=== PATIENT | male | born 1945 | race Caucasian/White ===

== ENCOUNTER 2020-12-25 11:18 | Emergency (ER) | payer MEDICARE ==
[~2020-12-25 11:18] MED LIST: AMOXICILLIN500 MG PO; ASPIRIN EC81 MG PO; INTRINSI B12-F1 EACH PO; L-LYSINE500 MG PO; LEVO-T175 MCG PO; MAGNESIUM250 M1 PO; OMEGA RED PO; REVATIO 20MG TA20 MG PO; VITAMIN B-121000 MC1 PO; VITAMIN C500 M4 PO; VITAMIN D32000 UNI1 PO; ZANTAC150 MG PO; ZESTORETIC 20-1 EACH PO; ZINC50 M1 PO
[2020-12-25 12:31] LABS: BASOPHIL 0.5 % (0-2); EOSINOPHIL 3.7 % (0-7); HCT 43.2 % (42.0-52.0); HGB 15.1 g/dl (13.2-18.0); LYMPHOCYTE 30.6 % (15-48); MCH 32.3 pg (25.0-31.0); MCV 92.3 fL (78.0-100.0); MONOCYTE 12.3 % (0-12); NEUTROPHIL 52.6 % (41-80); NRBC 0; PLT 129 K/uL (150-400); RBC 4.68 M/uL (4.70-6.00); RDW 13.3 % (11.5-14.0); WBC 6.5 K/uL (4.0-10.5)
[2020-12-25 12:48] LABS: ALBUMIN 3.6 g/dL (3.4-5.0); BILIRUBIN - TOTAL 0.8 mg/dL (0.2-1.0); BUN/CREAT RATIO (CALC) 10.8 RATIO; CREATININE 1.39 mg/dL (0.67-1.17); GLOBULIN (CALCULATION) 4.2 g/dL; POTASSIUM 4.2 mmol/L (3.5-5.1); TOTAL PROTEIN 7.8 g/dL (6.4-8.2)
[2020-12-25] MEDS ORDERED: NITROQUIK SL0.4 MG SL (14:35)
== END 2020-12-25 15:09 | disposition home or self-care (01) ==
LOC: FER 11:18
PROVIDERS: Emergency Medicine
DX: R07.89 Other chest pain (principal); M54.9 Dorsalgia, unspecified
CPT/HCPCS: 36415; 71045; 80053; 84484; 85025; 93005